=== PATIENT | male | born 1940 | race Caucasian/White ===

== ENCOUNTER → 2019-02-17 | Outpatient (CLI) | payer MEDICARE, BC ==
[~2019-02-17] MED LIST: ASPI-496 PO; ATOR40TA78 PO; CITA20TA6 PO; CLOP75TA PO; FENOFIBRATE PO; LISI-167 PO; LISI1TAB5 PO; METO50TA82 PO; MULT-717 PO; PANT40TA5 PO; SIMV20TA3 PO; TIOT18CA INH; UMEC1DIS INH; VENL75TA PO
[2019-02-17 09:34] LABS: BASOPHILS # (AUTO) 0.02 x10^3/uL (0-0.1); BASOPHILS % (AUTO) 1 % (0-1); EOSINOPHILS # (AUTO) 0.15 x10^3/uL (0-0.4); EOSINOPHILS % (AUTO) 3 % (1-7); LYMPHOCYTES # (AUTO) 0.89 x10^3/uL (1-3.4); LYMPHOCYTES % (AUTO) 18 % (22-44); MD NO; MEAN CORPUSCULAR HEMOGLOBIN 31.8 pg (27.5-34.5); MEAN CORPUSCULAR VOLUME 93.5 fL (81-97); MONOCYTES # (AUTO) 0.51 x10^3/uL (0.2-0.8); MONOCYTES % (AUTO) 10 % (2-9); NEUTROPHILS # (AUTO) 3.33 x10^3/uL (1.8-6.8); NEUTROPHILS % (AUTO) 68 % (42-75); PLATELET COUNT 206 x10^3/uL (130-400); RED BLOOD COUNT 5.32 x10^6/uL (4.38-5.82); RED CELL DISTRIBUTION WIDTH 13.9 % (9.4-14.8)
[2019-02-17 09:44] LABS: ALANINE AMINOTRANSFERASE 33 U/L (12-78); ALBUMIN 4.3 g/dL (3.4-5.0); ANION GAP 6 mmol/L (5-15); CALCIUM 10.5 mg/dL (8.5-10.1); CHLORIDE 106 mmol/L (98-107); CREATININE 1.19 mg/dL (0.7-1.3)
[2019-02-17 09:46] LABS: ALKALINE PHOSPHATASE 49 U/L (45-117); BILIRUBIN,TOTAL 0.6 mg/dL (0.2-1.0); TOTAL PROTEIN 7.7 g/dL (6.4-8.2)
== END | disposition home or self-care (01) ==
LOC: STAR 08:24
PROVIDERS: ATTEND Surgery
DX: Z01.818 Encounter for other preprocedural examination (principal); I44.4 Left anterior fascicular block; I10 Essential (primary) hypertension; Z87.891 Personal history of nicotine dependence
CPT/HCPCS: 36415; 71046; 80053; 85025; 93005

== ENCOUNTER 2019-03-16 10:52 | Day surgery (SDC) | payer MEDICARE, BC ==
[~2019-03-16] VITALS: Ht 172.7 cm; Wt 80.3 kg
[2019-03-16 11:50] VITALS: BP 94/58
[2019-03-16 11:56] VITALS: BP 94/58
[2019-03-16] MEDS ORDERED: LACTATED RINGERS 1,000 ML IV SCH (12:19)
[2019-03-16] MEDS ORDERED: FENTANYL PF 100 MCG/2ML ONE (12:54)
[2019-03-16] MEDS ORDERED: MIDAZOLAM 1 MG/ML, 2ML ONE (12:54)
[2019-03-16] MEDS ORDERED: BUPIVACAINE/EPI 0.5% 1:200K ONE (13:02)
[2019-03-16] MEDS ORDERED: CEFAZOLIN 1,000 MG ONE (13:35)
[2019-03-16] MEDS ORDERED: OXYcodone 5 MG/5 ML ORAL.SOL UDC PO PRN (14:00)
[2019-03-16] MEDS ORDERED: MEPERIDINE/PF 25MG/0.5ML IVPush PRN (14:00)
[2019-03-16] MEDS ORDERED: ONDANSETRON 2MG/ML, 2ML IV PRN (14:00)
[2019-03-16] MEDS ORDERED: HYDROmorphone 2 MG/ML, 1ML IVPush PRN (14:00)
[2019-03-16] MEDS ORDERED: EPHEDRINE 50 MG/ML, 1ML IVPush PRN (14:00)
[2019-03-16] MEDS ORDERED: ONDANSETRON ODT 8 MG PO PRN (14:00)
[2019-03-16] MEDS ORDERED: PROMETHAZINE 12.5 MG SUPP PR PRN (14:00)
[2019-03-16] MEDS ORDERED: MORPHINE SULFATE 4 MG/ML, 1ML IVPush PRN (14:00)
[2019-03-16] MEDS ORDERED: LABETALOL 5MG/ML, 20ML IV PRN (14:00)
[2019-03-16] MEDS ORDERED: PROMETHAZINE 25 MG/ML, 1ML IV PRN (14:00)
[2019-03-16] MEDS ORDERED: DIAZEPAM 5 MG/ML, 2ML IVPush PRN (14:00)
[2019-03-16] MEDS ORDERED: ALBUTEROL SULFATE 2.5 MG/3 ML NPPB PRN (14:00)
[2019-03-16] MEDS ORDERED: FENTANYL PF 100 MCG/2ML IV PRN (14:00)
[2019-03-16] MEDS ORDERED: hydrALAzine 20 MG/ML, 1ML IV PRN (14:00)
[2019-03-16] MEDS ORDERED: MIDAZOLAM 1 MG/ML, 2ML IV PRN (14:00)
[2019-03-16] MEDS ORDERED: HALOPERIDOL 5 MG/ML IV PRN (14:00)
== END 2019-03-16 18:25 | disposition home or self-care (01) ==
LOC: OUT 10:52
PROVIDERS: ATTEND Surgery
DX: T81.40XA Infection following a procedure, unspecified, initial encounter (principal); L76.32 Postprocedural hematoma of skin and subcutaneous tissue following other procedure; I25.10 Atherosclerotic heart disease of native coronary artery without angina pectoris; I10 Essential (primary) hypertension; E78.5 Hyperlipidemia, unspecified; J44.9 Chronic obstructive pulmonary disease, unspecified; E03.9 Hypothyroidism, unspecified; B99.8 Other infectious disease; Y83.8 Other surgical procedures as the cause of abnormal reaction of the patient, or of later complication, without mention of misadventure at the time of the procedure; Y92.89 Other specified places as the place of occurrence of the external cause
CPT/HCPCS: 10140; 87070; 87075; 87077; 87186; 87205; J0690; J2250; J3010; J7120